=== PATIENT | male | born 1990 | race African-American/Black ===

== ENCOUNTER 2017-01-25 00:55 | Emergency (ER) | payer BC ==
--- NOTE | 2017-01-25 02:51 | ER Document Report ---
HPI - HPI Patient complains to provider of: dysuria Pain Level: 3 Context: Patient is a 26-year-old male that comes emergency department for chief complaint of symptoms of dysuria, he states that he felt a burning sensation when he would urinate starting on Friday, he states that just before he urinated on Friday he felt a slight discomfort in his left mid abdomen, denies flank pain, denies having the pain again. He states he started taking Azo over- the-counter and his symptoms actually resolved about a day or so ago. He states that a couple of days ago he noticed a pink-colored tinge to his urine. Patient is sexually active with his girlfriend. He denies discharge, rash. He denies history of the same or any medical history. - DERM Skin Color: Normal Past Medical History - General Information source: Patient - Social History Smoking Status: Never Smoker Chew tobacco use (# tins/day): No Frequency of alcohol use: None Drug Abuse: None Lives with: Family Family History: Reviewed & Not Pertinent Patient has suicidal ideation: No Patient has homicidal ideation: No - Medical History Medical History: Negative Renal/ Medical History: Denies: Hx Peritoneal Dialysis Surgical Hx: Negative - Immunizations Hx Diphtheria, Pertussis, Tetanus Vaccination: Yes Vertical Provider Document - CONSTITUTIONAL General Appearance: WD/WN, No Apparent Distress - INFECTION CONTROL TRAVEL OUTSIDE OF THE [place] IN LAST 30 DAYS: No - HEENT HEENT: Atraumatic, Normal ENT Exam, Normocephalic - NECK Neck: Normal Inspection - RESPIRATORY Respiratory: Breath Sounds Normal, No Respiratory Distress O2 Sat by Pulse Oximetry: 100 - CARDIOVASCULAR Cardiovascular: Regular Rate, Regular Rhythm - GI/ABDOMEN Gastrointestinal: Abdomen Soft, Abdomen Non-Tender - REPRODUCTIVE Male Genitalia: Normal Inspection. negative: Abnormal Inspection - MUSCULOSKELETAL/EXTREMETIES Musculoskeletal/Extremeties: MAEW, FROM, Non-Tender - NEURO Level of Consciousness: Awake, Alert, Appropriate Motor/Sensory: No Motor Deficit, No Sensory Deficit Course - Re-evaluation Re-evalutation: External exam is completely unremarkable, abdomen is completely soft, no flank tenderness. Gonorrhea and Chlamydia are negative. Patient's urine actually has nitrates in it otherwise unremarkable urine. Because of his dysuria, patient will be treated, patient denies history of the same, anal sex, holding his urine. Low suspicion of kidney stone based on exam and symptoms. I discussed with patient, will treat, advised that he follow-up with urology if this continues to happen, advised to return if he develops any worsening symptoms such as vomiting, flank pain, fever, etc. Patient states understanding and agreement. - Vital Signs Vital signs: Temp Pulse Resp BP Pulse Ox 98 F 77 18 149/90 H 100 01/25/17 01:21 01/25/17 01:21 01/25/17 01:21 01/25/17 01:21 01/25/17 01:21 Discharge - Discharge Clinical Impression: Dysuria Condition: Stable Disposition: HOME, SELF-CARE Additional Instructions: Urinalysis indicates an infection. Gonorrhea and Chlamydia tests are negative. Take Keflex as directed. If this continues to occur please follow-up with urology listed below. Return the emergency department for any concerning worsening symptoms including vomiting, fever, severe abdominal or flank pain, etc. [facility] Urologist in [place], [place] Address: [address] [place] [address] [facility] clinic in [place], [place] Address: [address] [place], [place] [id number] Prescriptions: Cephalexin Monohydrate [Keflex 500 mg Capsule] 500 mg PO BID #14 capsule
[2017-01-25 03:32] LABS: APPEARANCE,URINE CLEAR; BILIRUBIN,URINE NEGATIVE (NEGATIVE); GLUCOSE, URINE NEGATIVE (NEGATIVE); KETONES,URINE NEGATIVE (NEGATIVE); LEUKOCYTE ESTERASE,URINE NEGATIVE (NEGATIVE); NITRITE,URINE POSITIVE (NEGATIVE); PROTEIN,URINE NEGATIVE (NEGATIVE); URINE SPECIFIC GRAVITY 1.003
[2017-01-25 04:46] LABS: CHLAM PCR NOT DETECTED (NOT DETECT)
[2017-01-25 05:11] VITALS: BP 140/83
== END 2017-01-25 05:05 | disposition home or self-care (01) ==
LOC: ER 00:55
DX: R30.0 Dysuria (principal)
CPT/HCPCS: 81001; 87491; 87591; 99283

== ENCOUNTER 2017-05-19 21:41 | Emergency (ER) | payer BC ==
--- NOTE | 2017-05-19 22:58 | ER Document Report ---
ED Medical Screen (RME) - General Chief Complaint: Eye Problem Stated Complaint: EYE INJURY;RED EYE & SENSITIVITY Time Seen by Provider: 05/19/17 22:56 Mode of Arrival: Ambulatory Information source: Patient Notes: 26-year-old male presents to ED for eye pain and sensitivity to light for the last 3 days. He states while he was playing ball he got hit with the elbow or forearm into the eye he has a red lateral conjunctival wrist sensitivity to light he states he tried teardrops with no relief. He denies going to a doctor. He states he just became concerned when they continued to be centered at the right second to the emergency room. I have greeted and performed a rapid initial assessment of this patient. A comprehensive ED assessment and evaluation of the patient, analysis of test results and completion of medical decision making process will be conducted by an additional ED providers. TRAVEL OUTSIDE OF THE [place] IN LAST 30 DAYS: No - Related Data Allergies/Adverse Reactions: No Known Allergies Allergy (Unverified 01/25/17 01:24) Past Medical History Renal/ Medical History: Denies: Hx Peritoneal Dialysis - Immunizations Hx Diphtheria, Pertussis, Tetanus Vaccination: Yes Physical Exam - Vital signs Vitals: Temp Pulse Resp BP Pulse Ox 98.5 F 70 20 149/84 H 100 05/19/17 21:45 05/19/17 21:45 05/19/17 21:45 05/19/17 21:45 05/19/17 21:45 - HEENT Head: Normocephalic, Atraumatic Eyes: Tears Conjunctiva: Injected Pupils: PERRL Course - Vital Signs Vital signs: Temp Pulse Resp BP Pulse Ox 98.5 F 70 20 149/84 H 100 05/19/17 21:45 05/19/17 21:45 05/19/17 21:45 05/19/17 21:45 05/19/17 21:45
--- NOTE | 2017-05-20 08:08 | ER Document Report ---
ED Eye Complaint - General Chief Complaint: Eye Problem Stated Complaint: EYE INJURY;RED EYE & SENSITIVITY Time Seen by Provider: 05/19/17 22:56 Mode of Arrival: Ambulatory Information source: Patient Notes: 26-year-old male who presents to the ER today after injury to the right eye occurred 3 days ago while he was playing basketball and caught an elbow to the right eye. Patient states he had no pain at the time but then the next morning woke up with some discomfort to the right eye and some redness. He states that since that time it has become a little more red with some tearing and light sensitivity. He has been trying artificial tears which have not been helping. He does not wear contacts or glasses. He admits to some blurred vision because of the watering and irritation. He denies any headache, facial pain. TRAVEL OUTSIDE OF THE [place] IN LAST 30 DAYS: No - Related Data Allergies/Adverse Reactions: No Known Allergies Allergy (Unverified 01/25/17 01:24) Past Medical History - General Information source: Patient - Social History Smoking Status: Never Smoker Chew tobacco use (# tins/day): No Drug Abuse: None Family History: Reviewed & Not Pertinent Renal/ Medical History: Denies: Hx Peritoneal Dialysis - Immunizations Hx Diphtheria, Pertussis, Tetanus Vaccination: Yes Review of Systems - Review of Systems Constitutional: No symptoms reported EENT: See HPI Cardiovascular: No symptoms reported Respiratory: No symptoms reported Gastrointestinal: No symptoms reported Genitourinary: No symptoms reported Male Genitourinary: No symptoms reported Musculoskeletal: No symptoms reported Skin: No symptoms reported Hematologic/Lymphatic: No symptoms reported Neurological/Psychological: No symptoms reported Physical Exam - Vital signs Vitals: Temp Pulse Resp BP Pulse Ox 98.5 F 70 20 149/84 H 100 05/19/17 21:45 05/19/17 21:45 05/19/17 21:45 05/19/17 21:45 05/19/17 21:45 - Notes Notes: PHYSICAL EXAMINATION: GENERAL: Well-appearing and in no acute distress. HEAD: Atraumatic, normocephalic. EYES: Light sensitive, pupils equal round and reactive to light, extraocular movements intact, sclera anicteric, right conjunctiva erythematous and watering ENT: ear canals without erythema or foreign body, TMs pearly anglin with good bony landmarks, nares patent, oropharynx clear without exudates. Moist mucous membranes. NECK: Normal range of motion, supple without lymphadenopathy LUNGS: CTAB and equal. No wheezes rales or rhonchi. HEART: Regular rate and rhythm without murmurs EXTREMITIES: Normal range of motion, no pitting edema. No cyanosis. NEUROLOGICAL: Cranial nerves grossly intact. Normal sensory/motor exams. PSYCH: Normal mood, normal affect. SKIN: Warm, Dry, normal turgor, no rashes or lesions noted - HEENT Visual acuity- Right eye: 50 Visual acuity- Left eye: 70 Visual acuity- Both eyes: 40 Corrective lenses worn: No Course - Re-evaluation Re-evalutation: 05/20/17 08:04 Exam was performed, intraocular pressures To the right eye were 20, 15 and 14 respectively. Fluorescein stain revealed no acute abnormalities, ulceration, abrasion, etc. - Vital Signs Vital signs: Temp Pulse Resp BP Pulse Ox 98.3 F 75 17 154/89 H 100 05/20/17 06:46 05/20/17 06:46 05/20/17 06:46 05/20/17 06:46 05/20/17 06:46 Procedures - Eye Procedure Right Time completed: 08:00 Eye Irrigated w/ Saline (ccs): 30 Foreign body removal: Right Alcaine Drops Administered: Yes Acular drops administered: Right Fluorescein applied: Right Slit lamp used: No Discharge - Discharge Clinical Impression: Right eye injury Qualifiers: Encounter type: initial encounter Qualified Code(s): S05.91XA - Unspecified injury of right eye and orbit, initial encounter Condition: Stable Disposition: HOME, SELF-CARE Additional Instructions: Return immediately for any new or worsening symptoms. Follow up with primary care provider, call tomorrow to make followup appointment. Prescriptions: Ketorolac Tromethamine [Acular] 1 drop OD Q6 #5 ml Forms: Return to Work
[2017-05-20 08:11] VITALS: BP 144/78
== END 2017-05-20 08:21 | disposition home or self-care (01) ==
LOC: ER 21:41
DX: S05.91XA Unspecified injury of right eye and orbit, initial encounter (principal); W50.0XXA Accidental hit or strike by another person, initial encounter; Y93.67 Activity, basketball
CPT/HCPCS: 99283